=== PATIENT | male | born 1935 | race Caucasian/White ===

== ENCOUNTER 2021-12-04 10:38 | Inpatient (IN) ==
[2021-12-04] MEDS ORDERED: SODIUM CHLORIDE 0.9% 1,000 ML IV STA (11:11)
[2021-12-04] MEDS ORDERED: ALBUTEROL/IPRATROPIUM 3 ML NEB RESP TX STA (11:11)
[2021-12-04 12:02] LABS: Basophils % 0.7 % (0.0-0.8); Eosinophils % 0.3 % (0.00-10.9); Hematocrit 38.5 VOL% (42.0-52.0); Hemoglobin 12.7 GM/DL (14.0-18.0); Immature Granulocytes % 0.5 %; Immature Granulocytes Absolute 0.03 #; Lymphocytes # 0.8 10*3/uL (1.4-4.0); Lymphocytes % 13.8 % (21.2-54.2); Mean Corpuscular Volume 86.5 FL (87-102); Mean Platelet Volume 8.8 FL (9.6-12.0); Monocytes % 7.7 % (1.7-12.7); Platelet Count 398 T/CUMM (130-400); Red Blood Count 4.45 MC/CUMM (3.8-5.5); Red Cell Distribution Width 14.1 % (9.3-17.3)
[2021-12-04 12:24] LABS: Albumin 3.2 G/DL (3.4-5.0); Bilirubin,Total 1.5 MG/DL (0.20-1.00); Calcium 9.2 MG/DL (8.5-10.1); Osmolality,Calculated 263.5 MOS/KG (273-304); Potassium 4.7 MMOL/L (3.5-5.1); Total Protein 6.6 G/DL (6.4-8.2)
[2021-12-04] MEDS ORDERED: DEXTROSE 50% 25 GM/50 ML VIAL IV STA (12:50)
[2021-12-04] MEDS ORDERED: DEXTROSE 10% 250 ML BAG IV STA (12:53)
[2021-12-04] MEDS ORDERED: ACETAMINOPHEN 325 MG TABLET PO PRN (14:22)
[2021-12-04] MEDS ORDERED: ONDANSETRON 4 MG/2 ML VIAL IV PRN (14:22)
[2021-12-04] MEDS ORDERED: DEXTROSE 10% 250 ML BAG IV PRN (14:22)
[2021-12-04] MEDS ORDERED: DOCUSATE SODIUM 100 MG CAPSULE PO PRN (14:22)
[2021-12-04] MEDS ORDERED: hydrALAZINE 20 MG/1 ML VIAL IV PRN (14:22)
[2021-12-04] MEDS ORDERED: GLUCAGON 1 MG VIAL IM PRN (14:22)
[2021-12-04] MEDS: DEXTROSE 5% NACL 0.45% 1,000 ML IV SCH (15:14)
[2021-12-04] MEDS: ENOXAPARIN 40 MG/0.4 ML SYRINGE SUBCUT SCH (15:14)
[2021-12-04] MEDS: METOPROLOL TARTRATE 25 MG TABLET PO SCH (21:19)
[2021-12-04] MEDS: GABAPENTIN 100 MG CAPSULE PO SCH (21:19)
[2021-12-05 05:10] LABS: Basophils # 0.1 10*3/uL (0.0-0.2); Eosinophils # 0.1 10*3/uL (0.0-0.87); Eosinophils % 1.2 % (0.00-10.9); Hematocrit 33.5 VOL% (42.0-52.0); Hemoglobin 11.1 GM/DL (14.0-18.0); Immature Granulocytes % 0.6 %; Immature Granulocytes Absolute 0.03 #; Lymphocytes % 19.5 % (21.2-54.2); Mean Corpuscular HGB Conc 33.1 GM/DL (32-36); Mean Corpuscular Volume 85.5 FL (87-102); Mean Platelet Volume 9.2 FL (9.6-12.0); Monocytes % 9.4 % (1.7-12.7); Neutrophils % 68.3 % (38.7-73.9); Platelet Count 384 T/CUMM (130-400); Red Blood Count 3.92 MC/CUMM (3.8-5.5); Red Cell Distribution Width 14.1 % (9.3-17.3); White Blood Count 4.9 T/CUMM (4-12)
[2021-12-05 05:26] LABS: Albumin 2.7 G/DL (3.4-5.0); Bilirubin,Total 0.9 MG/DL (0.20-1.00); Calcium 8.4 MG/DL (8.5-10.1); Osmolality,Calculated 264.4 MOS/KG (273-304); Potassium 3.4 MMOL/L (3.5-5.1); Total Protein 5.8 G/DL (6.4-8.2)
[2021-12-05] MEDS: PANTOPRAZOLE 40 MG TABLET PO SCH (09:39)
[2021-12-05] MEDS: LEVOTHYROXINE 75 MCG TABLET PO SCH (09:39)
[2021-12-05] MEDS: METOPROLOL TARTRATE 25 MG TABLET PO SCH ×2 (09:39→20:46)
[2021-12-05] MEDS: amLODIPine 5 MG TABLET PO SCH (09:39)
[2021-12-05] MEDS: GABAPENTIN 100 MG CAPSULE PO SCH ×2 (09:39→20:46)
[2021-12-05 09:40] LABS: Cancer Antigen 19-9 8.94 U/ML (0-35); Carcinoembryonic Antigen 83.4 NG/ML (0.0-5.0)
[2021-12-05] MEDS: NICOTINE 21 MG/24 HR PATCH TRANSDERM SCH (09:45)
[2021-12-05] MEDS: DEXTROSE 5% NACL 0.45% 1,000 ML IV SCH (10:41)
[2021-12-05] MEDS: ENOXAPARIN 40 MG/0.4 ML SYRINGE SUBCUT SCH (16:30)
[2021-12-05] MEDS: DEXTROSE 5% NACL 0.9% 1,000 ML IV SCH (16:40)
[2021-12-06] MEDS: DEXTROSE 5% NACL 0.9% 1,000 ML IV SCH ×2 (02:29→11:14)
[2021-12-06] MEDS: LEVOTHYROXINE 75 MCG TABLET PO SCH (11:12)
[2021-12-06] MEDS: GABAPENTIN 100 MG CAPSULE PO SCH (11:13)
[2021-12-06] MEDS: amLODIPine 5 MG TABLET PO SCH (11:13)
[2021-12-06] MEDS: METOPROLOL TARTRATE 25 MG TABLET PO SCH (11:13)
[2021-12-06] MEDS: NICOTINE 21 MG/24 HR PATCH TRANSDERM SCH (11:13)
[2021-12-06] MEDS: PANTOPRAZOLE 40 MG TABLET PO SCH (11:13)
[2021-12-06 12:26] VITALS: BP 125/66
== END 2021-12-06 13:48 | disposition hospice, home (50) | DRG 436 ==
LOC: N.ED 10:38 → SUATTDRO 14:23 → N.EDINP 14:23 → N.5E 16:19
PROVIDERS: ADMIT Internal Medicine; ATTEND Internal Medicine